=== PATIENT | female | born 1995 | race Caucasian/White ===

== ENCOUNTER 2018-08-09 21:15 | Emergency (ER) | payer BC ==
[2018-08-09] MEDS ORDERED: ACETAMINOPHEN 325 MG TAB PO (23:59)
[2018-08-09] MEDS ORDERED: SOD CHLORIDE 0.9% 1,000 ML IV (23:59)
[2018-08-10] MEDS: KETOROLAC 30 MG INJ IV (00:58)
[2018-08-10] MEDS: METOCLOPRAMIDE 10 MG INJ IV (00:58)
[2018-08-10] MEDS: DIPHENHYDRAMINE 50 MG INJ IV (00:58)
[2018-08-10] MEDS: ONDANSETRON 4 MG INJ IV (00:59)
[2018-08-10] MEDS: ACETAMINOPHEN 325 MG TAB PO (00:59)
[2018-08-10] MEDS: SOD CHLORIDE 0.9% 1,000 ML IV (01:00)
[2018-08-10 01:05] LABS: ADD MAN DIFF? NO
[2018-08-10 01:06] LABS: WHITE BLOOD COUNT 17.9 10^3/ul (4.8-10.8)
[2018-08-10 01:06] LABS: BASOPHIL # 0.1 10^3/ul (0.0-0.1); BASOPHILS % 0.3 % (0.0-2.0); EOSINOPHILS % 0.2 % (0.0-7.0); HEMATOCRIT 32.3 % (37.0-47.0); LYMPHOCYTES # 1.3 10^3/ul (0.8-2.9); LYMPHOCYTES % 7.1 % (15.0-51.0); MEAN CORPUSCULAR HEMOGLOBIN 30.5 pg (29.0-33.0); MEAN CORPUSCULAR HGB CONC 34.1 g/dl (32.0-37.0); MEAN CORPUSCULAR VOLUME 89.5 fl (82.0-101.0); MEAN PLATELET VOLUME 9.6 fl (7.4-10.4); MONOCYTE # 1.1 10^3/ul (0.3-0.9); NEUTROPHIL # 15.3 10^3/ul (1.6-7.5); NEUTROPHILS % 85.6 % (39.0-77.0); PLATELET COUNT 216 10^3/UL (140-415); RED BLOOD COUNT 3.61 10^6/ul (4.20-5.40); RED CELL DISTRIBUTION WIDTH 11.8 % (11.5-14.5)
[2018-08-10 01:31] LABS: ANION GAP 10 (5-13); BLOOD UREA NITROGEN 8 mg/dl (7-20); CALCIUM 8.5 mg/dl (8.4-10.2); CARBON DIOXIDE 25 mmol/L (21-31); CHLORIDE 102 mmol/L (97-110); CREATININE 0.68 mg/dl (0.44-1.00); Estimated GFR > 60 mL/min (>60); GLUCOSE 104 mg/dl (70-220); POTASSIUM 3.3 mmol/L (3.5-5.1); SODIUM 137 mmol/L (135-144)
[2018-08-10 06:00] LABS: ADD UMIC YES; UR ASCORBIC ACID NEGATIVE (NEGATIVE); UR BACTERIA FEW /HPF (NONE SEEN); UR BILIRUBIN (Dip) NEGATIVE (NEGATIVE); UR BLOOD (Dip) 2+ mg/dL (NEGATIVE); UR CLARITY CLEAR (CLEAR); UR COLOR YELLOW (YELLOW); UR GLUCOSE (Dip) NEGATIVE (NEGATIVE); UR KETONES (Dip) 1+ mg/dL (NEGATIVE); UR LEUKOCYTE ESTERASE (Dip) NEGATIVE Leu/ul (NEGATIVE); UR NITRITE (Dip) NEGATIVE (NEGATIVE); UR RBC 4 /HPF (0-5); UR SPECIFIC GRAVITY (Dip) 1.015 (1.003-1.030); UR TOTAL PROTEIN (Dip) NEGATIVE (NEGATIVE); UR UROBILINOGEN (Dip) NEGATIVE (NEGATIVE); UR WBC 2 /HPF (0-5)
[2018-08-10] MEDS: SOD CHLORIDE 0.9% 500 ML IV (06:56)
== END 2018-08-10 07:52 | disposition home or self-care (01) ==
LOC: FTE 21:15
DX: M06.9 Rheumatoid arthritis, unspecified (principal); R50.9 Fever, unspecified
CPT/HCPCS: 36415; 71045; 80048; 81001; 81025; 85025; 87400; 96361; 96374; 96375; 99284-25